=== PATIENT | female | born 2000 | race Caucasian/White ===

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

== ENCOUNTER 2021-09-09 13:42 | Emergency (ER) | payer OTHER ==
[2021-09-09 14:05] VITALS: BP 119/81; PULSE 107; TEMP 97.8; BMI 23.9
[2021-09-09] MEDS ORDERED: SODIUM CHLORIDE 1,000 ML IV STA (14:24)
[2021-09-09] MEDS ORDERED: ONDANSETRON 4 MG/2 ML VIAL IVPUSH ONE (14:25)
[2021-09-09] MEDS ORDERED: FAMOTIDINE 20 MG/50 ML IVPB 20 MG/50 ML MG IVPB ONE ×2 (14:25→14:40)
[2021-09-09] MEDS ORDERED: ONDANSETRON 4 MG/2 ML VIAL ONE (14:40)
[2021-09-09 16:11] LABS: BASO % 0.1 % (0-2.0); EOS % 0.1 % (0-4.5); HEMOGLOBIN 13.4 GM/dL (10.7-15.3); LYMPH % 5.3 % (8-40); MCHC 33.4 g/dl (32.0-36.0); MEAN CELL VOLUME 89.6 fl (80-96); MEAN PLT VOLUME 8.6 fl (7.5-11.1); MONO % 5.6 % (3.8-10.2); NEUT % 88.9 % (42.8-82.8); PLATELET COUNT 232 10^3/uL (134-434); RBC 4.47 M/mm3 (3.60-5.2); RDW 12.8 % (11.6-15.6); WHITE BLOOD COUNT 8.4 K/mm3 (4.0-10.0)
[2021-09-09 16:34] LABS: CALCIUM 8.7 mg/dL (8.5-10.1)
[2021-09-09 16:35] LABS: ALBUMIN 3.7 g/dl (3.4-5.0); BLOOD UREA NITROGEN 9.9 mg/dL (7-18); HCG,QUALITATIVE URINE Negative
[2021-09-09 16:37] LABS: EPI CELLS >36 /uL (0-25.1); HYALINE CASTS 3 /uL (0-3.1); PH,URINE >= 9.0 (5.0-8.0); URINE APPEARANCE CLEAR; URINE BACTERIA 1955 /uL (0-1359); URINE BILIRUBIN NEGATIVE (NEGATIVE); URINE COLOR YELLOW; URINE GLUCOSE (UA) NEGATIVE (NEGATIVE); URINE KETONE TRACE (NEGATIVE); URINE LEUK ESTERASE NEGATIVE (NEGATIVE); URINE NITRITE NEGATIVE (NEGATIVE); URINE PROTEIN 1+ (NEGATIVE); URINE WBC 31 /uL (0-25.8)
[2021-09-09 16:38] LABS: CREATININE 0.6 mg/dL (0.55-1.3)
[2021-09-09 16:39] LABS: BILIRUBIN,TOTAL 0.7 mg/dL (0.2-1)
[2021-09-09 16:40] LABS: TOT PROT 6.6 g/dl (6.4-8.2)
[2021-09-09 16:57] LABS: URINE RBC 91 /uL (0-23.9)
== END 2021-09-09 17:04 | disposition home or self-care (01) ==
LOC: JER 13:42
PROC: 3E033GC Introduction of Other Therapeutic Substance into Peripheral Vein, Percutaneous Approach (ICD-10-PCS; principal; 2021-09-09)
DX: R10.13 Epigastric pain (principal)
CPT/HCPCS: 36415; 80053; 81003; 83690; 84703; 85025; 87077; 87086; 87186; 99284-25

== ENCOUNTER 2021-10-19 19:41 | Emergency (ER) | payer OTHER ==
[2021-10-19 19:50] VITALS: BP 125/77; PULSE 89; TEMP 97.9; BMI 19.5
[2021-10-19] MEDS ORDERED: IBUPROFEN 400 MG TABLET (FP) PO ONE ×2 (21:15→21:21)
== END 2021-10-19 22:44 | disposition home or self-care (01) ==
LOC: JERFT 19:41
DX: M79.644 Pain in right finger(s) (principal); W23.1XXA Caught, crushed, jammed, or pinched between stationary objects, initial encounter
CPT/HCPCS: 73140-TC-RT-FY; 99283-25

== ENCOUNTER 2024-01-01 14:54 | Emergency (ER) | payer OTHER ==
[2024-01-01 15:19] VITALS: BP 113/69; PULSE 70; RESP 20; TEMP 99; BMI 20.7
== END 2024-01-01 15:56 | disposition home or self-care (01) ==
LOC: JERFT 14:54
DX: H60.502 Unspecified acute noninfective otitis externa, left ear (principal); H92.02 Otalgia, left ear
CPT/HCPCS: 99283-25